=== PATIENT | female | born 1965 | race Caucasian/White ===

== ENCOUNTER → 2021-01-31 10:09 | Outpatient (BNVA) | payer OTHER, SELFPAY | PROVIDERS: Family Provider Nurse Practitioner; PCP Family Medicine; Visit Provider Registered Nurse | DX: Z79.899 Other long term (current) drug therapy (principal) | CPT/HCPCS: 36415; 80053; 80061; 83036; 84443; 85025 ==

== ENCOUNTER 2021-02-17 11:34 | Emergency (ER) | payer SELFPAY ==
[2021-02-17] VITALS (7 sets, daily range): BP systolic 157–196; BP diastolic 77–107; PULSE 68–70; RESP 16–18; TEMP 36.3; O2SAT 96–99
--- NOTE | 2021-02-17 11:40 | W.ED.UPPEXIN ---
HPI - Extremity Injury (Upper) General: Chief Complaint: Extremity Injury, Upper Stated Complaint: Lft Arm Injury due to fall Time Seen by Provider: 02/17/21 11:40 Source: patient Mode of arrival: ambulatory Limitations: no limitations History of Present Illness: HPI narrative: 55-year-old female presents to the ER today for left wrist pain, swelling, and deformity that occurred after she tripped and fell outside this morning and landed on some brick papers at her home. Patient reports immediate deformity and pain. She has not taken anything at this time. They came straight to the ER. Patient denies any prior injury to this wrist. Patient reports pain with any movement or touch. Patient denies headache, fever, chills, chest pain, shortness of breath, nausea, vomiting, diarrhea, constipation, change of bowel or bladder habits. MD complaint: injury to: left and wrist Onset (ago): minute(s) Place: home Severity: severe Severity scale (1-10): 8 Relieving factors: none Exacerbating factors: movement of extremity Context: fall Review of Systems Const: Denies: fever(s), chills or fatigue ENMT: Denies: throat pain, nasal discharge or nasal congestion Card: Denies: chest pain or palpitations Resp: Denies: dyspnea or wheezing GI: Denies: abdominal pain, nausea, vomiting, diarrhea or constipation Musc: Reports: extremity pain, extremity swelling and deformity (L wrist) Skin/Breast: Denies: rash Neuro: Denies: headache(s) PFS ED PFSH: Medical History Alcohol dependence, in remission Chronic post-traumatic stress disorder Generalized anxiety disorder Major depressive disorder, recurrent severe without psychotic features Psychiatric care Social History Smoking and tobacco status: current every day smoker Alcohol intake: former Adopted: No Physical Exam Const: COMMON NORMALS: average body habitus, patient oriented x3 and healthy appearing GENERAL APPEARANCE: cooperative; not comfortable (Patient appears uncomfortable secondary to pain in the wrist) HENMT: COMMON NORMALS: normocephalic HEAD & SCALP: normocephalic Lymph: LYMPHATIC: no lymphadenopathy noted Resp: COMMON NORMALS: normal respiratory effort, No retractions and clear to auscultation bilaterally EFFORT & INSPECTION: Yes able to speak in complete sentences AUSCULTATION: clear to auscultation bilaterally Cardio: COMMON NORMALS: regular rate and regular rhythm RATE: regular rate RHYTHM: regular rhythm GI: COMMON NORMALS: Normal to inspection, nondistended, normoactive bowel sounds present, Soft to palpation and non-tender PALPATION: Yes Soft to palpation Extremity: GENERAL: Yes normal exam except as noted and Yes deformity (L wrist) LEFT UPPER EXTREMITY: Yes wrist (pain with any ROM) Left wrist: No palpation (pain to light palpation), No ROM and Yes neurovascular exam (pulses equal bilaterally) Neuro: COMMON NORMALS: patient oriented x3 Psych: COMMON NORMALS: mental status grossly normal, Normal thought process present and cooperative THOUGHT PROCESS: Normal thought process present Skin: COMMON NORMALS: no rashes or lesions noted GENERAL SKIN EXAM: no rashes or lesions noted Course ED course: Patient has obvious deformity and swelling. Will get x-ray and provide something for pain. Consultations: Consultation #1: Spoke with Dr. Ford, and discussed patient's fracture. He would like to see patient splinted and follow-up in office this week. Time: 12:03 Vital Signs: Vital signs: Vital Signs Temperature 97.3 F L 02/17/21 11:44 Pulse Rate 68 02/17/21 12:09 Respiratory Rate 16 02/17/21 12:09 Blood Pressure 163/90 02/17/21 12:09 Pulse Oximetry 99 02/17/21 12:09 MDM - Extremity Injury (Upper) MDM Narrative: Medical decision making narrative: Patient presents to the ER after a fall this a.m. and landing on her left wrist. There was obvious deformity and swelling on exam. X-ray does indicate a distal radius fracture that appears slightly displaced and comminuted. Patient is neurovascularly intact on exam. I did contact Dr. Ford regarding this patient and he recommends splinting and following up in the clinic this week. Patient was given pain medication while in ER to help with pain. We will send her home with a sugar tong splint and something for pain. Rest and elevation recommended. Close return precautions discussed. Patient verbalized understanding is in agreement with this treatment plan. Critical Care Time Critical Care Time: Critical Care Time: No Discharge Plan Discharge Patient Disposition: Home Clinical Impression: Fracture of distal end of left radius Qualifiers: Encounter type: initial encounter Fracture type: closed Fracture morphology: unspecified fracture morphology Qualified Code(s): S52.502A - Unspecified fracture of the lower end of left radius, initial encounter for closed fracture Condition: Stable Prescriptions: New hydrocodone-acetaminophen 5-325 mg tablet 1 tab PO Q8H PRN (Reason: pain) Qty: 12 RF: 0 Zofran 4 mg tablet 4 mg PO Q8H PRN (Reason: nausea and vomiting) 4 Days Qty: 12 RF: 0 No Action prednisone 20 mg tablet 60 mg PO DAILY 9 Days Qty: 18 RF: 0 meclizine 25 mg tablet 25 mg PO TID PRN (Reason: dizziness) Qty: 30 RF: 0 fluoxetine [Prozac] 40 mg capsule 40 mg PO BID 90 Days Qty: 180 RF: 0 levothyroxine 100 mcg capsule 100 mcg PO DAILY RF: 0 tramadol 50 mg tablet 50 mg PO QID PRNRF: 0 ascorbic acid (vitamin C) 500 mg capsule 500 mg PO DAILY RF: 0 clonazepam 1 mg tablet 1 mg PO .1-2x PRN (Reason: anxiety) Qty: 55 RF: 1 zolpidem [Ambien] 10 mg tablet 10 mg PO .Half to one nightly Qty: 30 RF: 1 Discharge Orders: Discharge ED (Routine); Ordered 02/17/21 Ordered By: Phyllis Ramos Referrals: Ebony Liz NP [Primary Care Provider] - Discharge Diet: Usual diet Discharge Activity: Limit activity as instructed Patient Instructions: Wrist Fracture in Adults (ED), Opioid Safety Activity Restrictions/Additional Instructions: Take hydrocodone for pain as prescribed. Do not take tramadol with it. Take a stool softener in order to avoid constipation. Take Zofran as needed for any nausea. Rest ice and elevation recommended. Continue to wear splint until follow-up with Ortho. Do not get the splint wet. Contact tomorrow at [phone] to schedule a follow-up appointment this week. Return to the ER with any new or worsening symptoms. Coding Level of Care Code ED Tax Compliance Manager for Jackie Cummings Exam Comprehensive
--- NOTE | 2021-02-17 11:42 | XRR_ITS ---
PROCEDURE INFORMATION: Exam: XR Left Wrist Exam date and time: 02/17/2021 11:42 AM Age: 55 years old Clinical indication: Injury or trauma; Fall; Blunt trauma (contusions or hematomas); Wrist; Left; Additional info: Fall with L wrist deformity TECHNIQUE: Imaging protocol: XR Left wrist. Views: 3 or more views. COMPARISON: No relevant prior studies available. FINDINGS: Bones/joints: There is an impacted and dorsally angulated fracture of the distal radius and fracture of the ulnar styloid process. There is osteopenia. No dislocation. Carpal bones are intact. Soft tissues: There is soft tissue edema. No foreign body. XR/XR wrist LT min 3V* [id number] IMPRESSION: There is an impacted and dorsally angulated fracture of the distal radius and fracture of the ulnar styloid process.
[2021-02-17] MEDS: ondansetron 2 mg/ML SDV 2 mL 4 MG IVP (12:05)
[2021-02-17] MEDS: morphine 4 mg/mL SDV 1 mL IVP (12:05)
--- NOTE | 2021-02-18 11:55 | DCPLANNER ---
direct marketing manager had message to speak with patient about options for follow up, patient has no insurance. direct marketing managermanager of finance patients chart, patient needs a follow up appointment with ortho. direct marketing manager called the ortho clinic, spoke with Sarah, gave clinic patients information. direct marketing manager was told that patients information would be printed and reviewed. Clinic will call patient with appointment information. direct marketing manager spoke with patient, she stated that she did not have insurance, rehabilitation caseworker will mail patient both of the [employer] financial developer applications to patient to fill out and return to hospital for review.
--- NOTE | 2021-02-19 10:45 | DCPLANNER ---
Patient has a follow up appointment scheduled for Friday, February 19, 2021 at 2:[address] Ford. Clinic will call patient with appointment information.
--- NOTE | 2021-02-21 08:47 | DCPLANNER ---
Patient had a follow up appointment scheduled for 02.19.[address] Ford at [facility] - patient did attend appointment.
== END 2021-02-17 13:09 | disposition home or self-care (01) ==
PROVIDERS: Emergency Provider Physician Assistant; PCP Nurse Practitioner
DX: S52.502A Unspecified fracture of the lower end of left radius, initial encounter for closed fracture (principal); F17.210 Nicotine dependence, cigarettes, uncomplicated; W01.0XXA Fall on same level from slipping, tripping and stumbling without subsequent striking against object, initial encounter
CPT/HCPCS: 29125; 73110; 96374; 96375; 99284; J2270; J2405

== ENCOUNTER → 2021-02-19 16:41 | Outpatient (BNVA) | payer SELFPAY | PROVIDERS: PCP Nurse Practitioner; Visit Provider Orthopaedic Surgery | DX: Z20.822 Contact with and (suspected) exposure to COVID-19 (principal); S52.502A Unspecified fracture of the lower end of left radius, initial encounter for closed fracture; X58.XXXA Exposure to other specified factors, initial encounter | CPT/HCPCS: 87635 ==

== ENCOUNTER 2021-02-22 10:07 | Day surgery (SDC) | payer SELFPAY ==
[2021-02-21 15:19] VITALS: BMI 23.1
[2021-02-22] VITALS (9 sets, daily range): BP systolic 139–176; BP diastolic 71–106; PULSE 68–84; RESP 16–18; TEMP 36.2–36.4; O2SAT 94–100
--- NOTE | 2021-02-22 | SCC_ITS ---
Procedure Done: ORIF extra articular distal radius fracture 13.4 seconds of fluoroscopic guidance, for a cumulative dose of 0.24 mGy, was provided to Dr. Huerta by the radiology department. C-arm images of the LEFT wrist were saved for the patient's permanent record. SALOME
--- NOTE | 2021-02-22 | XR_ITS ---
WS: [id number] Left wrist, C-arm fluoroscopy, 02/22/2021 Clinical Data: ORIF Comparison: None. Findings: The distal left radial fracture is reduced with a ventral plate and multiple orthopedic screws. XR/XR wrist LT 2V 19191 Impression: Internal fixation of distal left radial fracture.
--- NOTE | 2021-02-22 10:15 | W.PM.OPSUD ---
Surgery/Procedure H&P Update DATE OF PROCEDURE: February 22, 2021 DATE H&P PERFORMED: 02/19/21 H&P UPDATE INFORMATION: I have reviewed H&P completed within last 30 days, I have examined patient prior to procedure and No changes to prior documentation PLANNED PROCEDURE: Operation Date: 02/22/21 12:45 Proposed Procedures p ORIF Wrist 18120 S52.502A(Left) - Anderson Ford DO
[2021-02-22] MEDS: sodium chloride 0.9% 1,000 ML 30 ML IV (11:00)
--- NOTE | 2021-02-22 11:42 | ANES.PREANE2 ---
Pre-Anesthetic Assessment Pre-Anesthetic Assessment: Height/Weight: Height 1.63 m Weight 61.235 kg Temp Pulse Resp BP Pulse Ox 97.3 F L 68 16 139/71 96 02/22/21 10:40 02/22/21 10:40 02/22/21 10:40 02/22/21 10:40 02/22/21 10:40 Preop Diagnosis: left distal radius fracture Proposed Procedure: Operation Date: 02/22/21 12:45 Proposed Procedures p ORIF Wrist 34432 S52.502A(Left) - Anderson Ford, DO Was Beta [place] taken within 24 hours: N/A Was Clonidine taken within 24 hours: N/A Last intake: Intake Last Liquid Date 02/22/21 Last Liquid Time 08:00 Last Solid Date 02/21/21 Last Solid Time 21:00 Social: Social History: No alcohol and No tobacco Exam: Pre-Anes Outpt Exam: alert and oriented x 3 Airway: Submandibular: WNL Cervical ROM: WNL MP: 1 History/ROS: No significant complaints Pulmonary: Pulmonary: None reported CV/HEM: CV/HEM: None reported : : None reported Hepatic: Hepatic: None reported GI: GI: None reported Metabolic: Metabolic: None reported Musc/skel: Musc/skel: None reported Neuropsych: Neuropsych: None reported Anesthetic Plan: ASA status: 1 Anesthesia: General Risk of > 500 ml blood loss (7ml/kg in children): No PFSH Anesthesia PFSH: Medical History Alcohol dependence, in remission Chronic post-traumatic stress disorder Generalized anxiety disorder Major depressive disorder, recurrent severe without psychotic features Psychiatric care Social History Smoking and tobacco status: current every day smoker Alcohol intake: former Adopted: No Data Anesthesia Cardiac Studies: No Data to Display
--- NOTE | 2021-02-22 12:34 | PM.OP ---
Operative Report Date of procedure: February 22, 2021 Pre-op Diagnosis: left distal radius fracture Post-op diagnosis: same Procedure Done: ORIF extra articular distal radius fracture Certified Professional Midwife: Nico Carpenter Certified Professional Midwife: VICENTE Webster assisted with positioning and closure of the wound. He assisted with retraction and helping me reduce the fracture. He was needed to help hold the fracture reduced while I put plates and screws on to stabilize the fracture. He was required to keep the feel dry and clean. Anesthesia: General Estimated blood loss (mL): 5 Condition: stable Disposition: PACU Procedure: ORIF Left distal radius extra articular Patient was brought to the operative suite placed in the supine position. After undergoing anesthesia all areas impingement were well-padded. Patient was prepped and draped in normal sterile fashion. Skin incision made over the left volar aspect of the wrist. The FCR tendon was identified and retracted ulnarly. Incision made through the FCR fascia. The pronator quadratus was reflected ulnarly and the fracture was identified reduced. A Tushar plate was placed 3 screws were placed distally 2 screws proximally AP and lateral fluoroscopy ensured that the fracture and hardware were probe positions. Wounds were irrigated and closed with Vicryl and Monocryl suture. Sterile dressings were applied. Patient was placed in a volar splint.
[2021-02-22] MEDS: fentaNYL 50 mcg/mL INJ 2mL IVP (12:52)
--- NOTE | 2021-02-22 13:20 | PC.NURSE ---
Pt c/o pain. Given 50 mcg Fentanyl. Pt still c/o pain 15 mins after initial fentanyl push, however O2 sats were between 93-94%. Decided to not give another 50 mcg of Fentanyl even though pt c/o pain, per fentanyl protocols. Put in one time order for phase II per Dr. Ford's discharge med orders. OPS nurse Ray notified upon report to give PO med.
[2021-02-22] MEDS: HYDROcodone-acetaminophen 5-325 mg Tablet 1 TAB PO (13:37)
== END 2021-02-22 13:45 | disposition home or self-care (01) ==
PROVIDERS: PCP Nurse Practitioner; Visit Provider Orthopaedic Surgery
PROC: (CPT 25607; principal; 2021-02-22 12:45)
DX: S52.552A Other extraarticular fracture of lower end of left radius, initial encounter for closed fracture (principal); W01.10XA Fall on same level from slipping, tripping and stumbling with subsequent striking against unspecified object, initial encounter; F17.210 Nicotine dependence, cigarettes, uncomplicated
CPT/HCPCS: 25607; 73100; 76000; C1713; J1100; J1885; J2405; J2704; J3010; J3490; J7030

== ENCOUNTER 2021-03-05 10:15 | Outpatient (CLI) | payer SELFPAY | END 2021-03-05 10:16 | disposition home or self-care (01) | LOC: SPT 10:22 | PROVIDERS: PCP Nurse Practitioner; Visit Provider Orthopaedic Surgery | DX: Z47.89 Encounter for other orthopedic aftercare (principal); S52.592D Other fractures of lower end of left radius, subsequent encounter for closed fracture with routine healing; X58.XXXD Exposure to other specified factors, subsequent encounter | CPT/HCPCS: L3908 ==

== ENCOUNTER → 2021-04-04 10:36 | Outpatient (BNVA) | payer SELFPAY | PROVIDERS: PCP Nurse Practitioner; Visit Provider Orthopaedic Surgery | DX: Z48.89 Encounter for other specified surgical aftercare (principal) | CPT/HCPCS: 73110 ==

== ENCOUNTER → 2021-05-15 12:50 | Outpatient (BNVA) | payer OTHER, SELFPAY | PROVIDERS: PCP Nurse Practitioner; Visit Provider Nurse Practitioner Family | DX: Z20.822 Contact with and (suspected) exposure to COVID-19 (principal) | CPT/HCPCS: 87635 ==

== ENCOUNTER → 2021-10-31 12:54 | Outpatient (BNVA) | payer OTHER, SELFPAY | PROVIDERS: PCP Nurse Practitioner; Visit Provider Registered Nurse | DX: Z79.899 Other long term (current) drug therapy (principal) | CPT/HCPCS: 80053; 84443; 85025 ==

== ENCOUNTER 2022-10-24 16:09 | Emergency (ER) | payer SELFPAY ==
[2022-10-24 16:11] VITALS: PULSE 90; RESP 16; TEMP 37.2; O2SAT 97; BMI 21.3
--- NOTE | 2022-10-24 17:29 | XRR_ITS ---
PROCEDURE INFORMATION: Exam: XR Right Knee Exam date and time: 10/24/2022 5:46 PM Age: 57 years old Clinical indication: Injury or trauma; Other: Cat scratches; Laceration; Lower leg; Right; Foreign body involvement not specified; Additional info: Cat bite TECHNIQUE: Imaging protocol: Radiologic exam of the right knee. Views: 3 views. COMPARISON: No relevant prior studies available. FINDINGS: Bones/joints: Osseous structures are intact. Negative for fracture. Joint spaces are preserved. Soft tissues: No radiopaque foreign body. XR/XR knee RT 3V* [id number] IMPRESSION: No radiopaque foreign body.
--- NOTE | 2022-10-24 17:29 | XRR_ITS ---
PROCEDURE INFORMATION: Exam: XR Left Wrist Exam date and time: 10/24/2022 5:46 PM Age: 57 years old Clinical indication: Injury or trauma; Other: Cat scratches; Bite; Wrist and hand; Left; Prior surgery; Surgery date: 6+ months; Surgery type: Orif distal radius; Additional info: Cat bite TECHNIQUE: Imaging protocol: Radiologic exam of the left wrist. Views: 3 or more views. COMPARISON: No relevant prior studies available. FINDINGS: Bones/joints: Intact ORIF hardware within the distal radius. Old fracture deformity of the ulnar styloid process. Osseous structures are intact. No acute fracture. Soft tissues: No radiopaque foreign body. XR/XR wrist LT min 3V* [id number] IMPRESSION: No radiopaque foreign body.
[2022-10-24] MEDS: tetanus-dipt-pertussis 0.5 mL SDV IM (18:38)
[2022-10-24] MEDS: levoFLOXacin 500 mg Tablet PO (18:41)
--- NOTE | 2022-10-24 19:11 | PC.NURSE ---
pt was sent home with lidocaine and triple antibiotic ointment
--- NOTE | 2022-10-24 19:14 | PC.NURSE ---
pt cat scratch wounds were treated with lidocaine prior to cleaning. cleaned with NS and a 10 pk of gauze.
--- NOTE | 2022-10-25 00:52 | ED_ITS ---
HPI - Animal Bite General: Chief Complaint: Animal Bite Stated Complaint: cat scatches/ bits all over Time Seen by Provider: 10/24/22 17:01 History of Present Illness: Patient is in for a cat bite. She reports that she has a female and a male cat in her home that just had a litter of kittens. She let another female cat in the home that is hers and the 2 female cats got in a fight she was in between them and the male cat and the male Was trying to get to the female cats and latc hed onto her leg and arm. She reports that she has numerous cuts to her legs of both arms. This happened 2 days ago. She reports her left hand is starting to swell and the cuts behind her right knee are very painful. She denies any fever or chills. She reports not being up-to-date on her tetanus vaccination. Her cat has not had rabies vaccine but is never outside is only inside cat. She rep orts that he is acting well and does not have any signs of illness. Associated symptoms: Deny chills, fever(s), headache(s) or syncope Review of Systems Const: Denies: fever(s), chills or body aches Eyes: Denies: change in vision or blurry vision ENMT: Denies: throat pain Card: Denies: chest pain, palpitations, irregular heart rhythm, lightheadedness or syncope Resp: Denies: dyspnea, productive cough or non-productive cough GI: Denies: abdominal pain, nausea or vomiting : Denies: flank pain, difficulty voiding, dysuria, urinary frequency, urinary urgency or urinary hesitancy Musc: Denies: neck pain or back pain Skin/Breast: Reports: other (Numerous bites and lacerations bilateral upper and lower extremities from c) Neuro: Denies: headache(s), numbness in extremities or weakness in extremities PFSH ED PFSH: Medical History Alcohol dependence, in remission Chronic post-traumatic stress disorder Chronic use of benzodiazepine for therapeutic purpose Generalized anxiety disorder Major depressive disorder, recurrent severe without psychotic features Psychiatric care Social History Smoking and tobacco status: current every day smoker (1/2 PPD Started smoking in 1994) Alcohol intake: former Substance/Drug Use: never Adopted: No Female Reproductive History: Spontaneous abortions: No Physical Exam Const: COMMON NORMALS: no acute distress, patient oriented x3 and alert Neck/C-Spine: COMMON NORMALS: no JVD Resp: COMMON NORMALS: normal respiratory effort, No use of accessory muscles and clear to auscultation bilaterally AUSCULTATION: clear to auscultation bilaterally Cardio: COMMON NORMALS: no JVD, regular rate, regular rhythm, S1 normal heart sound present, S2 normal heart sound present and No murmurs present (Cardio) RATE: regular rate RHYTHM: regular rhythm HEART SOUNDS: S1 normal heart sound present and S2 normal heart sound present Neuro: COMMON NORMALS: patient oriented x3 SENSORIUM/ORIENTATION: Yes alert Skin: NARRATIVE SKIN EXAM: Patient has multiple linear superficial lacerations bilateral upper and lower extremities and puncture wounds from cat bite. Patient has approximately 1 cm lacerations in her right popliteal region that are superficial but appears slightly deeper than the other lacerations. There is minimal swelling and erythema surrounding the lacerations behind the knee. Superficial lacerations to the left hand have moderate edema and erythema surrounding them. There is no oozing or drainage at this time. Course Vital Signs: Vital signs: Vital Signs Temperature 98.9 F 10/24/22 16:11 Pulse Rate 90 10/24/22 16:11 Respiratory Rate 16 10/24/22 16:11 Pulse Oximetry 97 10/24/22 16:11 Oxygen Delivery Me thod Room Air 10/24/22 16:11 MDM - Animal Bite Medical Decision Making Patient suffered bites and scratches from her own indoor cat when she happened to be in between 2 cats fighting and the cat that bit her. Patient reports that the cat does not have current rabies vaccination, but he is only an indoor cat. Animal bite form is done and faxed to the health department as per reporting laws. Lengthy discussion is held with patient regarding rabies risk. Patient opts not to receive rabies prophylaxis vaccinations today stating that her cat is healthy and indoors and she can continue to monitor the cat over the next 10 days. Tetanus vaccination is updated for the patient today. Wounds are cleaned and dressed with triple antibiotic ointment. X-rays do not show any foreign body. Start patient on antibiotics she is allergic to sulfa and penicillin. Levaquin antibiotic as prescribed first dose given here. Advised patient to follow-up with primary care provider. Return to the ER for any new or worsening symptoms. Lab Data Radiology Impressions Knee X-Ray 10/24/22 17:29 IMPRESSION: No radiopaque foreign body. Wrist X-Ray 10/24/22 17:29 IMPRESSION: No radiopaque foreign body. Discharge Plan Discharge Patient Disposition: Home Clinical Impression: Cat bite, Infected cat bite Condition: Stable Prescriptions: New levofloxacin 500 mg tablet 500 mg PO DAILY 6 Days Qty: 6 0RF Rx Instructions: Start 10/25/2022 No Action ascorbic acid (vitamin C) 500 mg capsule 500 mg PO DAILY venlafaxine [Effexor XR] 37.5 mg capsule,extended release 24hr 37.5 mg PO DAILY Qty: 30 1RF Rx Instructions: in addition to 75mg daily clonazepam 1 mg tablet 1 mg PO .1-2x PRN (Reason: anxiety) 30 Days Qty: 56 2RF lidocaine 5 % adhesive patch,medicated 1 patch topical DAILY Qty: 30 5RF Rx Instructions: leave on most painful area for up to 12 hrs 340B levothyroxine 125 mcg tablet 125 mcg PO DAILY 90 Days Qty: 90 3RF meloxicam 7.5 mg tablet 7.5 mg PO DAILY 90 Days Qty: 90 1RF Rx Instructions: WITH FOOD fluoxetine [Prozac] 40 mg capsule 40 mg PO BID 90 Days Qty: 180 0RF zolpidem [Ambien] 10 mg tablet 10 mg PO .Half to one nightly PRN (Reason: insomnia) 30 Days Qty: 30 2RF venlafaxine 75 mg capsule,extended release 24hr See Rx Instructions .ROUTE .COMPLEX Qty: 30 0RF Dose Instruction: Take 1 capsule by mouth once daily Rx Instructions: Take 1 capsule by mouth once daily risperidone 0.5 mg tablet See Rx Instructions .ROUTE .COMPLEX Qty: 30 0RF Dose Instruction: Take 1 tablet by mouth once daily Rx Instructions: Take 1 tablet by mouth once daily Discharge Orders: Discharge ED (Routine); Ordered 10/24/22 Ordered By: Shagufta Johnson Referrals: Mary Torres MD [Primary Care Provider] - Discharge Diet: Usual diet Discharge Activity: Resume usual activity Patient Instructions: Animal Bite (ED) Activity Restrictions/Additional Instructions: Take antibiotic as directed starting tomorrow. You received your first dose in ER tonight. Keep the wounds clean and dry. Follow-up with your primary care provider next week. Return to the ER for any new or worsening symptoms. As per our discussion, you have opted not to have rabies vaccination series at this time since the cat is your cat and an indoor cat that you can monitor. Monitor the cat for the next 10 days and if the cat starts becoming ill you need to get the rabies vaccine series. Coding Level of Care Code ED Research Engineer Marine Equipment for Jackie Cummings
== END 2022-10-24 19:17 | disposition home or self-care (01) ==
PROVIDERS: Emergency Provider Nurse Practitioner Family; PCP Family Medicine
DX: S80.872A Other superficial bite, left lower leg, initial encounter (principal); S80.871A Other superficial bite, right lower leg, initial encounter; S80.271A Other superficial bite of right knee, initial encounter; S40.872A Other superficial bite of left upper arm, initial encounter; S40.871A Other superficial bite of right upper arm, initial encounter; L08.89 Other specified local infections of the skin and subcutaneous tissue; W55.01XA Bitten by cat, initial encounter; F17.210 Nicotine dependence, cigarettes, uncomplicated; Z23 Encounter for immunization
CPT/HCPCS: 73110; 73562; 90471; 90715; 99284

== ENCOUNTER → 2023-02-12 15:13 | Outpatient (BNVA) | payer OTHER, SELFPAY | PROVIDERS: PCP Family Medicine; Visit Provider Registered Nurse | DX: Z79.899 Other long term (current) drug therapy (principal) | CPT/HCPCS: 80053; 80061; 82306; 82607; 83036; 83540; 84439; 84443; 84481; 85025 ==

== ENCOUNTER → 2024-03-07 14:27 | Outpatient (BNVA) | payer SELFPAY | PROVIDERS: PCP Family Medicine; Visit Provider Family Medicine | DX: E03.9 Hypothyroidism, unspecified (principal); R74.8 Abnormal levels of other serum enzymes; R19.7 Diarrhea, unspecified | CPT/HCPCS: 80053; 80061; 84439; 84443; 84481; 85025 ==

== ENCOUNTER → 2024-08-27 10:21 | Outpatient (BNVA) | payer SELFPAY | PROVIDERS: PCP Family Medicine; Visit Provider Emergency Medicine | DX: R30.0 Dysuria (principal) | CPT/HCPCS: 81000 ==

== ENCOUNTER → 2025-02-06 14:16 | Outpatient (BNVA) | payer SELFPAY | PROVIDERS: PCP Family Medicine; Visit Provider Family Medicine | DX: E03.9 Hypothyroidism, unspecified (principal); R74.8 Abnormal levels of other serum enzymes | CPT/HCPCS: 80053; 84439; 84443; 84481 ==